=== PATIENT | male | born 1975 | race Two or more races ===

== ENCOUNTER 2016-06-26 21:10 | Emergency (ER) | payer SELFPAY ==
[2016-06-26 21:20] VITALS: BP 149/84
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
== END 2016-06-26 23:30 | disposition home or self-care (01) ==
LOC: ER 21:10
DX: M54.5 Low back pain (principal); Z79.899 Other long term (current) drug therapy; Z79.891 Long term (current) use of opiate analgesic; Z87.828 Personal history of other (healed) physical injury and trauma; Z87.891 Personal history of nicotine dependence
CPT/HCPCS: 72110; 99283

== ENCOUNTER → 2016-10-04 | Outpatient (CLI) | payer SELFPAY ==
[2016-10-04 17:12] LABS: ALANINE AMINOTRANSFERASE 20 U/L (21-72); ALBUMIN 4.5 g/dL (3.5-5.0); ALKALINE PHOSPHATASE 60 U/L (38-126); ANION GAP 13 (5-19); ASPARTATE AMINO TRANSFERASE 17 U/L (17-59); BILIRUBIN,DIRECT 0.4 mg/dL (0.0-0.4); BILIRUBIN,TOTAL 0.5 mg/dL (0.2-1.3); BLOOD UREA NITROGEN 16 mg/dL (7-20); CALCIUM 9.5 mg/dL (8.4-10.2); CARBON DIOXIDE 25 mmol/L (22-30); CHLORIDE 102 mmol/L (98-107); CREATINE KINASE 95 U/L (55-170); CREATININE RESULT 1.26 mg/dL (0.52-1.25); GLUCOSE 93 mg/dL (75-110); SODIUM 140.3 mmol/L (137-145); TOTAL PROTEIN 7.3 g/dL (6.3-8.2)
== END ==
LOC: OD 16:37
PROVIDERS: ATTEND Physician Assistant
DX: T67.0XXA Heatstroke and sunstroke, initial encounter (principal); X58.XXXA Exposure to other specified factors, initial encounter; Y93.9 Activity, unspecified; Y92.9 Unspecified place or not applicable; Y99.9 Unspecified external cause status
CPT/HCPCS: 36415; 80053; 82550